=== PATIENT | male | born 1995 | race Caucasian/White ===

== ENCOUNTER 2020-01-25 08:17 | Outpatient (REF) | payer BC, SELFPAY ==
--- NOTE | 2020-01-25 08:44 | XR_ITS ---
EXAMINATION: XR LUMBOSACRAL SPINE CLINICAL INFORMATION: Lumbar go with sciatica. COMPARISON: None TECHNIQUE: Three views of the lumbosacral spine. FINDINGS: The vertebral bodies and posterior elements are normal. The disc spaces are preserved and the vertebral alignment is normal. The paraspinal soft tissues are normal. XR/XR lumbar spine 2-3V IMPRESSION: No evidence of acute fracture or malalignment.
== END 2020-01-25 08:18 | disposition home or self-care (01) ==
LOC: HO.HMGCX 08:17
PROVIDERS: PCP Nurse Practitioner Family; Visit Provider Nurse Practitioner Family
DX: M54.40 Lumbago with sciatica, unspecified side (principal)
CPT/HCPCS: 72100

== ENCOUNTER 2024-08-03 12:21 | Outpatient (AMB) | payer BC, SELFPAY ==
--- OUTSIDE RECORDS SUMMARY | 2024-08-03 12:24 | XMS_ITS | Data Portability ---
Author Organization ID - [facility], [facility] Address [address] [place] [address] Assessment Encounter Date Assessment Date Assessment LastModified by Organization Details LastModified Time 03/16/2013 03/16/2013 Healthy 17 year old. Nl dev migraines- gets KERNS about 10 times a month. Takes ibuprofen and imitrex with some help. Will help KERNS with sleep.- discussed trial Vitamin B 2- 200mg BID Increased BMI- labs off- repeat in 2 month- disc that labs are concerning. will need repeat in 2 months. [email or web address] Not available 03/16/2013 17:14:58 05/15/2013 05/15/2013 obesity- disc diet and exersize at length. great job on weight control. imp of life changes. keep it up jmarcusunis Not available 05/15/2013 17:24:45 06/16/2013 06/16/2013 ST- Symptomatic care. Call if worse/ not improving or with any concerns jyunis Not available 06/16/2013 09:32:05 07/05/2013 07/05/2013 ROM - abx as directed, sx care, f/u prn kcamera Not available 07/05/2013 14:04:30 06/12/2014 06/12/2014 Healthy 18 year old. Nl growth and dev improved BMI- doing well- disc healthy lifestyle Migraines- not as often as before- still has not tried riboflavin jyunis Not available 06/12/2014 14:42:00 Plan of Treatment Reminders Order Date Submit Date Provider Last Modified By Organization Details Last Modified Time Details Appointments None recorded. Lab culture, throat 2013 014 mata [facility], [address] [place] [address], [phone], 4 09:32:05 rapid strep A 2013 014 mata [facility], [address] [place] [address], [phone], 4 09:32:05 Referral internal medicine referral 2014 015 sbotta Not available 5 15:36:42 Procedures None recorded. Surgeries None recorded. Imaging None recorded. Medication Orders amoxicillin 875 mg tablet 2013 014 brandon [id number], [address] [facility], [place], [address], 5 14:13:39 Patient TargetsNo targets recorded. Patient Instructions Encounter Date Encounter Id Patient Instructions Last Modified By Organization Details Last Modified Time 03/16/2013 [id number] pediatric sympto m checklist* mata Not available 03/16/2013 17:14:58 06/12/2014 [id number] immunization: wh at you need to know mata Not available 06/12/2014 14:41:59 patient health questionnaire depression assessment* brandon Not available 06/12/2014 14:49:29 Well Visit, Ages 18 to 65: Care Instructions IESHA Not available 09/11/2014 02:12:49 Reason for Referral Internal Medicine Referral f or Adult health examination Referring Physician: Bandar Singletary, Pediatric Medicine, Encounter Date: 06/12/2014 Results Created Date Observation Date Name Description Value Unit Range Abnormal Flag Note LastModifiedBy Organization Detail LastModifiedTime 06/17/19 14 06/16/2013 rapid strep A Rapid Strep negati ve Not Available [facility] [address] [place] [address], [phone], 06/16/2013 09:02:27 06/17/19 14 06/16/2013 cultu re, throa t Result 24 HR negati ve Not Available [facility] [address] [place] [address], [phone], 06/16/2013 09:02:27 06/17/19 14 06/16/2013 cultu re, throa t Result 48 HR negati ve Not Available [facility] [address] [place], [address], 06/16/2013 09:02:27 03/16/19 14 03/16/2013 samiria milena sympt om check list* Result negati ve Not Available [facility] [address] [place], [address], 03/16/2013 15:01:46 03/14/19 14 03/14/2013 CBC w/dif f WBC 6.9 K/mm3 (4.0-1 1.0) Not Available [facility] (Centralized Electronic Ordering - All Locations) Patient Can Go To The Location Of Their Choice, 03/14/2013 10:26:27 03/14/19 14 03/14/2013 CBC w/dif f RBC 5.60 M/mm3 (4.70- 6.10) Not Available [facility] (Centralized Electronic Ordering - All Locations) Patient Can Go To The Location Of Their Choice, 03/14/2013 10:26:27 03/14/19 14 03/14/2013 CBC w/dif f HGB 16.9 gm/dL (14.0- 18.0) Not Available [facility] (Centralized Electronic Ordering - All Locations) Patient Can Go To The Location Of Their Choice, 03/14/2013 10:26:27 03/14/19 14 03/14/2013 CBC w/dif f HCT 50.4 % (42.0- 52.0) Not Available [facility] (Centralized Electronic Ordering - All Locations) Patient Can Go To The Location Of Their Choice, 03/14/2013 10:26:27 03/14/19 14 03/14/2013 CBC w/dif f MCV 90.0 fL (80.0- 94.0) Not Available [facility] (Centralized Electronic Ordering - All Locations) Patient Can Go To The Location Of Their Choice, 03/14/2013 10:26:27 03/14/19 14 03/14/2013 CBC w/dif f MCH 30.2 pg (27.0- 34.0) Not Available [facility] (Centralized Electronic Ordering - All Locations) Patient Can Go To The Location Of Their Choice, 03/14/2013 10:26:03/14/1903/14/2013 CBC w/dif f MCHC 33.5 % (33.0- 37.0) Not Available [facility] (Centralized Electronic Ordering - All Locations) Patient Can Go To The Location Of Their Choice, 03/14/2013 10:26:03/14/1903/14/2013 CBC w/dif f plt 266 K/mm3 (150-4 60) Not Available [facility] (Centralized Electronic Ordering - All Locations) Patient Can Go To The Location Of Their Choice, 03/14/2013 10:26:03/14/19 14 03/14/2013 CBC w/dif f RDW-SD 42.2 fL (<47.0 ) Not Available [facility] (Centralized Electronic Ordering - All Locations) Patient Can Go To The Location Of Their Choice, 03/14/2013 10:26:03/14/19 14 03/14/2013 CBC w/dif f MPV 11.7 fL (9.4-1 2.4) Not Available [facility] (Centralized Electronic Ordering - All Locations) Patient Can Go To The Location Of Their Choice, 03/14/2013 10:26:03/14/19 14 03/14/2013 CBC w/dif f automated NRBC 0.0 #/100 _WBC' s Not Available [facility] (Centralized Electronic Ordering - All Locations) Patient Can Go To The Location Of Their Choice, 03/14/2013 10:26:03/14/19 14 03/14/2013 CBC w/dif f abs. NRBC 0.0 K/mm3 Not Available [facility] (Centralized Electronic Ordering - All Locations) Patient Can Go To The Location Of Their Choice, 03/14/2013 10:26:03/14/19 14 03/14/2013 CBC w/dif f neut # 4.4 K/mm3 (1.3-7 .0) Not Available [facility] (Centralized Electronic Ordering - All Locations) Patient Can Go To The Location Of Their Choice, 03/14/2013 10:26:03/14/1903/14/2013 CBC w/dif f lymph # 1.7 K/mm3 (0.8-3 .1) Not Available [facility] (Centralized Electronic Ordering - All Locations) Patient Can Go To The Location Of Their Choice, 03/14/2013 10:26:03/14/1903/14/2013 CBC w/dif f mono# 0.6 K/mm3 (0.4-1 .3) Not Available [facility] (Centralized Electronic Ordering - All Locations) Patient Can Go To The Location Of Their Choice, 03/14/2013 10:26:03/14/19 14 03/14/2013 CBC w/dif f eo # 0.1 K/mm3 (0.0-0 .4) Not Available [facility] (Centralized Electronic Ordering - All Locations) Patient Can Go To The Location Of Their Choice, 03/14/2013 10:26:03/14/1903/14/2013 CBC w/dif f baso # 0.1 K/mm3 (0.0-0 .1) Not Available [facility] (Centralized Electronic Ordering - All Locations) Patient Can Go To The Location Of Their Choice, 03/14/2013 10:26:03/14/1903/14/2013 CBC w/dif f abs. imm gran 0.0 K/mm3 Not Available [facility] (Centralized Electronic Ordering - All Locations) Patient Can Go To The Location Of Their Choice, 03/14/2013 10:26:03/14/1903/14/2013 CBC w/dif f neut 63.7 % (44-76 ) Not Available [facility] (Centralized Electronic Ordering - All Locations) Patient Can Go To The Location Of Their Choice, 03/14/2013 10:26:03/14/1903/14/2013 CBC w/dif f lymph 24.8 % (15-43 ) Not Available [facility] (Centralized Electronic Ordering - All Locations) Patient Can Go To The Location Of Their Choice, 03/14/2013 10:26:27 03/14/19 14 03/14/2013 CBC w/dif f monocyte 8.5 % (4.5-1 0.5) Not Available [facility] (Centralized Electronic Ordering - All Locations) Patient Can Go To The Location Of Their Choice, 03/14/2013 10:26:27 03/14/1903/14/2013 CBC w/dif f eo 1.3 % (0-6) Not Available [facility] (Centralized Electronic Ordering - All Locations) Patient Can Go To The Location Of Their Choice, 03/14/2013 10:26:27 03/14/19 14 03/14/2013 CBC w/dif f baso 1.3 % (0-2) Not Available [facility] (Centralized Electronic Ordering - All Locations) Patient Can Go To The Location Of Their Choice, 03/14/2013 10:26:27 03/14/19 14 03/14/2013 CBC w/dif f imm gran 0.4 % (0.0-0 .3) high Not Available [facility] (Centralized Electronic Ordering - All Locations) Patient Can Go To The Location Of Their Choice, 03/14/2013 10:26:27 03/14/19 14 03/14/2013 gluco se glucose 107 mg/dL (70-99 ) high Not Available [facility] (Centralized Electronic Ordering - All Locations) Patient Can Go To The Location Of Their Choice, 03/14/2013 14:13:49 03/14/19 14 03/14/2013 lipid panel cholesterol, total 203 mg/dL (0-170 ) high Not Available [facility] (Centralized Electronic Ordering - All Locations) Patient Can Go To The Location Of Their Choice, 03/14/2013 14:13:52 03/14/19 14 03/14/2013 lipid panel triglyceride 351 mg/dL (0-100 ) high Not Available [facility] (Centralized Electronic Ordering - All Locations) Patient Can Go To The Location Of Their Choice, 03/14/2013 14:13:52 03/14/1903/14/2013 lipid panel HDL chol 35 mg/dL (>40) low Not Available [facility] (Centralized Electronic Ordering - All Locations) Patient Can Go To The Location Of Their Choice, 03/14/2013 14:13:52 03/14/19 14 03/14/2013 lipid panel LDL cholesterol, calculated 98 mg/dL (0-109 ) Not Available [facility] (Centralized Electronic Ordering - All Locations) Patient Can Go To The Location Of Their Choice, 03/14/2013 14:13:52 03/14/19 14 03/14/2013 lipid panel non HDL cholesterol (calc) 168 mg/dL (0-139 ) high Not Available [facility] (Centralized Electronic Ordering - All Locations) Patient Can Go To The Location Of Their Choice, [id number] 03/14/2013 14:13:52 Result Notes None recorded. Problems Name Problem SNOMED Code Status Onset Date Resolution Date Notes Provider Name and Address Organization Details Recorded Time Obesity 584086943 Active Bandar Singletary MD [address] [place] [address], , [facility] 4 17:24:45 Acute pharyngiti s 012544084 Active Bandar Singletary MD [address] [place] [address], , [facility] 4 09:32:05 Otitis media 87952552 Active Hannah Suazo MD [address] [place] [address], , [facility] 4 14:04:30 Headache 57189239 Active 2007 Not Available [facility] 3 03:01:22 Contusion 406182872 Completed 200601/17/2011 Not Available [facility] 3 03:01:22 Pain in throat 401894958 Completed 01/17/2011 Not Available [facility] 3 03:01:22 Migraine with aura 2387058 Active Donovan Ruiz [facility] 5 17:17:12 Migraine with aura 3463667 Completed 01/17/2011 Not Available [facility] 3 03:01:22 Epistaxis Completed 01/17/2011 Not Available [facility] 3 03:01:22 Low back pain 381944223 Completed 200701/17/2011 Not Available [facility] 3 03:01:22 Open wound 022799464 Completed 200801/17/2011 Not Available [facility] 3 03:01:22 Pain in limb 98290541 Completed 02/15/2012 Not Available [facility] 3 03:01:22 Streptococ ernesto sore throat 49590225 Completed 01/17/2011 Not Available [facility] 3 03:01:22 Childhood emotional disorder 912627543 Completed 200701/17/2011 Not Available [facility] 3 03:01:22 Notes:Labs 03/21- inc chol an d glu Problem Notes None recorded. Medical Equipment None Reported. Allergies No known drug allergies Medications Name Sig Start Date Stop Date Status Note LastModified by Organization Details LastModified Time ibuprofen 800 mg tablet TAKE 1 TABLET BY MOUTH AT FIRST SIGN OF HEADACHE. MAY REPEAT IN 6 HOURS ONCE active Not Available Not Available No t Available sumatriptan 25 mg tablet TAKE 1 TABLET BY MOUTH WITH FLUIDS EARLY POSSIBLE AT ONSET OF MIGRAINE MAY REPEAT AFTER 2HRS. active Not Available Not Available No t Available penicillin V potassium 500 mg tablet Take 1 tablet twice a day by oral route for 10 days. 12/05 completed Not Available Not Available Not Available amoxicillin 875 mg tablet Take 1 tablet every 12 hours by oral route for 10 days. 07/15 completed Not Available Not Available Not Available sumatriptan active Not Available Not A vailable Not Available Vitals Date Recorded Body height Body mass index (BMI) Provider Name and Address Organization Details Last Updated DateTime 03/16/2013 172.72 cm 31.6 kg/m2 Bandar Singletary MD [address] [place] [address], [phone], [facility] 03/16/2013 15:32:50 Date Recorded Body weight Systolic blood pressure Diastolic blood pressure Provider Name and Address Organization Details Last Updated DateTime 03/16/2013 51613.2129 6 g 118 mm[Hg] 70 mm[Hg] Renetta Guerrero M.A. [facility] 03/16/2013 15:11:21 Date Recorded Body height Body weight Body mass index (BMI) Provider Name and Address Organization Details Last Updated DateTime 05/15/2013 172.72 cm 93000.53231 g 31.3 kg/m2 Renetta Guerrero M.A. [facility] 05/15/2013 16:28:33 Date Recorded Body height Body mass index (BMI) Body weight Systolic blood pressure Diastolic blood pressure Provider Name and Address Organization Details Last Updated DateTime 06/12/2014 172.72 cm 30.4 kg/m2 08564.47 4 g 120 mm[Hg] 76 mm[Hg] Renetta Guerrero M.A. [facility] 5 14:13:39 Social History Question Answer Notes LastModified by Organizat ion Details LastModified Time Tobacco Smoking Status Never Smoker Kristen Augustine null, [facility] 07/30/2011 12:59:38 Home Situation Father Sees Mom Daily Information not available 01/10/2011 Siblings 2 Sibs Palak 04/14/93; Bryce 09/10/98 Information not available 01/10/2011 Parent's Name Etelvina [email or web address] Information not available 01/10/2011 Parent's Name Philip [email or web address] Information not available 01/10/2011 Are You Passively Exposed To Smoke? No slevin Information not available 03/16/2013 Sex: Unknown Functional Status None recorded. Mental Status None recorded. Family History Relationship Description Onset Age of this Age Resolved Age Notes LastModified by Organization Details LastModified Time Father Diabetes mellitus previo usly record ed as Diabet es slevin Not available 06/12/2014 14:45:31 Father Obese previo usly record ed as Obesit y slevin Not available 06/12/2014 14:45:31 Father Problem HTN slevin Not available 14:45:31 Father Hypercholest erolemia previo usly record ed as Elevat ed Choles terol slevin Not available 06/12/2014 14:45:31 Mother Obese previo usly record ed as Obesit y slevin Not available 06/12/2014 14:45:31 Mother Autoimmune disease previo usly record ed as Thyroi d or other Autoim mune Diseas es slevin Not available 06/12/2014 14:45:31 Mother Mental disorder anxiet y (previ ously record ed as Psychi atric Disord ers) slevin Not available 06/12/2014 14:45:31 Paternal Grandfather Alcoholism slevin Not available 09/2014 14:45:31 Maternal Grandfather Asthma slevin Not available 2014 14:45:31 Maternal Grandfather Allergy slevin Not available 2014 14:45:31 Maternal Grandfather Heart disease slevin Not available 2014 14:45:31 Maternal Grandfather Obese slevin Not available 2014 14:45:31 Paternal Grandmother Obese slevin Not available 2014 14:45:31 Brother Mental disorder slevin Not available 2014 14:45:31 Brother Allergy amox slevin Not available 0 06/12/2014 14:45:31 Sister Mental disorder slevin Not available 2014 14:45:31 Notes:updated 06/12/14 Medical History Condition Response CARDIAC PROBLEMS N ALLERGIC AND IMMUNOLOGIC PROBLEMS N DEVELOPMENTAL/ BEHAVIORAL PROBLEMS N HOSPITALIZATIONS N ACCIDENTS INJURIES N ENDOCRINE PROBLEMS/DIABETES N GI PROBLEMS/CONSTIPATION N ORTHOPEDIC PROBLEMS N CHICKEN POX / VARICELLA HISTORY or POSIT JET TITER N MUSCLE/ JOINT/ BONE PROBLEMS N RHEUMATOLOGIC PROBLEMS N DERMATOLOGIC PROBLEMS/ECZEMA N ENT PROBLEMS/OTITIS MEDIA/ CHRONIC N FACULTY ADMINISTRATOR PROBLEMS N HEMATOLOGIC /ONCOLOGIC PROBLEMS N RENAL PROBLEMS N OTHER N NEUROLOGIC/ SEIZURES OR CONVULSIONS N ADHD N HEADACHES/MIGRAINES/DIZZINESS N CONGENITAL AND GENETIC PROBLEMS N INFECTIOUS DISEASE PROBLEMS N PUMONARY PROBLEMS/ ASTHMA N PSYCH PROBLEMS N Immunizations Vaccine Type Date Status Note Provider Nam e and Address Organization Details Recorded Time MMR 7 completed Not Available [facility] 01/10/2011 03:18:24 Hep B, unspecified formulation 6 completed Not Available [facility] 01/10/2011 03:19:20 Hep B, unspecified formulation 6 completed Not Available [facility] 01/10/2011 03:18:24 varicella 8 completed Not Available [facility] 01/10/2011 03:18:24 Hep B, unspecified formulation 7 completed Not Available [facility] 01/10/2011 03:19:20 Influenza, split virus, trivalent, preservative 1 completed Not Available [facility] 03/25/2019 02:35:19 Influenza, split virus, trivalent, preservative 2 completed Not Available [facility] 03/25/2019 02:35:23 meningococcal MCV4P 2 completed Not Available [facility] 03/25/2019 02:33:31 HPV, quadrivalent 2 completed Not Available [facility] 03/25/2019 02:34:02 HPV, quadrivalent 3 completed Not Available [facility] 03/25/2019 02:34:04 DTaP, unspecified formulation 7 completed Not Available [facility] 01/10/2011 03:19:20 DTaP, unspecified formulation 1 completed Not Available [facility] 01/10/2011 03:19:20 DTaP, unspecified formulation 8 completed Not Available [facility] 01/10/2011 03:19:20 DTaP, unspecified formulation 6 completed Not Available [facility] 01/10/2011 03:19:20 DTaP, unspecified formulation 7 completed Not Available [facility] 01/10/2011 03:19:20 OPV 7 completed Not Available [facility] 01/10/2011 03:19:20 IPV 1 completed Not Available [facility] 01/10/2011 03:19:20 OPV 6 completed Not Available [facility] 01/10/2011 03:19:20 OPV 7 completed Not Available [facility] 01/10/2011 03:19:20 Hib, unspecified formulation 6 completed Not Available [facility] 01/10/2011 03:19:20 Hib, unspecified formulation 7 completed Not Available [facility] 01/10/2011 03:19:20 Hib, unspecified formulation 7 completed Not Available [facility] 01/10/2011 03:19:20 MMR 0 completed Not Available [facility] 01/10/2011 03:19:20 Hib, unspecified formulation 7 completed Not Available [facility] 01/10/2011 03:19:20 Novel [id number]-[id number] 0 completed Not Available [facility] 03/25/2019 02:34:47 HPV, quadrivalent 5 completed Not Available [facility] 03/25/2019 02:36:01 Tdap 9 completed Not Available [facility] 01/10/2011 03:17:07 varicella 08/11/200 9 completed Not Available [facility] 01/10/2011 03:18:24 Influenza, split virus, trivalent, preservative 0 completed Not Available [facility] 03/25/2019 02:35:06 meningococcal MCV4P 0 completed Not Available [facility] 03/25/2019 02:33:24 Past Encounters Encounter ID Performer Location Encounter Start Date Encounter Closed Date Diagnosis/Indication Diagnosis SNOMED-CT Code Diagnosis ICD10 Code Diagnosis Note [id number] Eder Perla MD [facility] [address] [place] [id number] 4 02/08/2007 16:00:06 02/08/2007 16:47:30 [id number] Pollo Wooten MD [facility] [address] [place] [address] 4 03/07/2007 16:58:16 03/07/2007 17:15:06 [id number] Pollo Wooten MD [facility] [address] [place] [phone] 4 05/11/2007 16:13:10 05/11/2007 17:23:32 [id number] Bandar Singletary MD [facility] [address] [place] [phone] 4 07/26/2007 14:00:30 11/15/2008 01:23:50 [id number] Pollo Wooten MD [facility] [address] [place] [address] 4 07/06/2008 14:57:35 07/06/2008 15:28:01 [id number] Bandar Singletary MD [facility] [address] [place] [address] 4 10/16/2008 17:10:22 11/15/2008 01:23:50 [id number] Bandar Singletary MD [facility] [address] [place] [id number] 4 06/11/2009 12:46:03 06/11/2009 14:06:01 [id number] Pollo Wooten MD [facility] [address] [place] [phone] 4 07/09/2009 13:24:09 07/09/2009 14:39:26 [id number] Bandar Sinlgetary MD [facility] [address] [place] [address] 01/03/2010 13:59:15 01/03/2010 15:30:17 [id number] Pollo Wooten MD [facility] [address] [place] [address] 11/25/2010 09:31:01 11/25/2010 09:53:10 [id number] Bandar Singletary MD [facility] [address] [place] [address] 12/08/2010 16:30:12 12/08/2010 16:43:40 [id number] Bandar Singletary MD [facility] [address] [place] [id number] 4 01/17/2011 08:05:13 01/17/2011 08:59:56 [id number] Juanis Mario MD [facility] [address] [place] [phone] 4 07/30/2011 12:52:54 07/30/2011 13:38:53 [id number] Bandar Singletary MD [facility] [address] [place] [address] 08/31/2011 15:14:26 08/31/2011 15:43:19 [id number] Bandar Singletary MD [facility] [address] [place] [phone] 4 02/15/2012 14:58:17 02/15/2012 16:47:39 [id number] Bandar Singletary MD [facility] [address] [place] [address] 06/09/2012 15:10:16 06/09/2012 15:27:57 [id number] Bandar Singletary MD [facility] [address] [place] [id number] 4 03/16/2013 14:57:03 03/16/2013 17:15:28 Well child [id number] Bandar Singletary MD [facility] [address] [place] [address] 05/15/2013 16:24:30 05/15/2013 17:25:15 Obesity 742144691 [id number] Bandar Singletary MD [facility] [address] [place] [address] 06/16/2013 09:00:31 06/16/2013 09:32:42 Acute pharyngitis 060164817 [id number] Hannah Suazo MD [facility] [address] [place] [address] 07/05/2013 12:56:35 07/05/2013 14:21:25 Otitis media 93965394 [id number] Bandar Singletary MD [facility] [address] [place] [place] [address] 06/12/2014 13:57:12 06/12/2014 15:20:58 Adult health examination 866412748 Health Concerns Section Related Observation LastModified by Organization Detai ls LastModified Time None Recorded Concern Status LastModified by Organization Details LastModified Time None Recorded Advance Directives Directive None Recorded Payers Encounter Date Sequence Insurance Name Policy Number Policy Patricio Covered Member ID Patricio Member ID Guarantor Name 03/16/2013 1 [facility] [employer] [facility] (MEDICAID HMO) [id number] Karan Kopyscinski [id number] [facility] 03/16/2013 1 [place] Karan Kopyscinski [id number] [facility] 05/15/2013 1 [facility] PLAN (MEDICAID HMO) [id number] Karan Kopyscinski [id number] [facility] 05/15/2013 1 [place] Karan Kopyscinski [id number] [facility] 06/16/2013 1 [facility] [employer] [facility] [employer] (MEDICAID HMO) [id number] Karan Kopyscinski [id number] [facility] 06/16/2013 1 [place] Karan Kopyscinski [id number] [facility] 07/05/2013 1 [facility] PLAN (MEDICAID HMO) [id number] Karan Kopyscinski [id number] [facility] 07/05/2013 1 [place] Karan Kopyscinski [id number] [facility] 06/12/2014 1 MED[place]ID-[place]: [facility] Karan Doverrafat [id number] Etelvina Velazco Notes Date Note Type Note Provider Name and Address Organization Details Recorded Time 03/16/2013 text/html getting over a recent illness Bandar Singletary MD [address] [place] [address], [phone], [facility] 03/16/2013 17:14:59
--- NOTE | 2024-08-03 12:33 | A.OFFPC_ITS ---
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 Accompanied by: Self / Same As Patient Allergies No Known Allergies Allergy (Verified 08/03/24 12:53) Medication List - Last Reconciled 08/03/24 by SNOW Juarez No Known Home Meds Tobacco use date assessed: 08/03/24 Dental Screening Dental Screen Date: 08/03/24 Did you have a dental visit in the last 12 months?: No Did you have a dental problem in the last 6 months where you did not have access to dental care?: No Was dental information given to patient?: Patient has dentist [facility] Medical History Lumbar nerve root compression Migraines Lumbago of lumbar region with sciatica Surgical History S/P lumbar microdiscectomy No pertinent past surgical history Family History Father Diabetes mellitus Mother No problems noted. Brother No problems noted. Brother No problems noted. Brother No problems noted. Sister No problems noted. Paternal Uncle Cancer Social History Housing: House Alcohol intake: current Alcohol intake frequency: does not drink Patient Tobacco Use Status: Never used Tobacco service: No Current occupational status: employed Cognitive needs: No Hearing needs: No Vision needs: Yes (rx glasses) Questionnaire PHQ-9 Over the last 2 weeks, how often have you been bothered by any of the following problems? 1. Little interest or pleasure in doing things: not at all 2. Feeling down, depressed, or hopeless: not at all 3. Trouble falling or staying asleep, or sleeping too much: not at all 4. Feeling tired or having little energy: not at all 5. Poor appetite or overeating: not at all 6. Feeling bad about yourself - or that you are a failure or have let yourself or your family down: not at all 7. Trouble concentrating on things, such as reading the newspaper or watching television: not at all 8. Moving or speaking so slowly that other people could have noticed. Or the opposite - being so fidgety or restless that you have been moving around a lot m ore than usual: not at all 9. Thoughts that you would be better off or of hurting yourself in some way: not at all Total score: 0 Depression Screening Interpretation: Negative Depression Screening Done: Yes Source: Developed by Drs. Oliver Dalton, Kiara Singh, Zain Marley and colleagues, with an educational edil from [employer]. Thrive Questionnaire Date Thrive assessed: 08/03/24 I am a: Patient What is your living situation today?: I have a steady place to live Within the past 12 months, did the food you bought not last and you didn't have the money to get more?: Never true Within the past 12 months, did you worry whether your food would run out before you got money to buy more?: Never true Do you have trouble paying for medicines?: No Do you have trouble getting transportation to medical appointments?: No Do you have trouble paying your heating and electricity bill?: No Do you have trouble taking care of your child, family member or friend?: No Do you have trouble with day-to-day activities such as bathing, preparing meals, shopping, managing finances, etc.?: No Are you currently unemployed and looking for a job?: No Are you interested in more education?: No Please select the resources that you would like help with: None Currently or been in a relationship where the following occur: No concerns reported THRIVE Score: 0 AUDIT C Alcohol Use Questionnaire (AUDIT-C) 1. How often do you have a drink containing alcohol?: Never 3. How often do you have six or more drinks on one occasion?: Never Total Score: 0 JD-7 AMB Questionnaire JD-7 Date JD - 7 assessed: 08/03/24 Feeling nervous, anxious, or on edge: 0 = Not at all Not being able to stop or control worryin = Not at all Worrying too much about different things: 0 = Not at all Trouble relaxin = Not at all Being so restless that it is hard to sit still: 0 = Not at all Becoming easily annoyed or irritable: 0 = Not at all Feeling afraid as if something awful might happen: 0 = Not at all Total JD-7 score (0-4 normal; 5-9 mild; 10-14 moderate; 15-21 severe): 0 Source: Developed by Drs. Oliver Dalton, Kiara Singh, Zain Marley and colleagues, with an educational edil from [employer]. JD-7 Assessment Billing JD-7 Assessment Tool: JD-7 Assessment 04016 Physical exam (Primary Care) Vital Signs: Last Vital Signs Temp 98.3 F 08/03/24 12:34 Pulse 102 H 08/03/24 12:34 Resp 14 08/03/24 12:34 BP 140/82 H 08/03/24 13:08 Pulse Ox 99 08/03/24 12:34 BMI result Body Mass Index 35.0 Tobacco/Smoking Status: Tobacco use Status Tobacco use date assessed 08/03/24 08/03/24 12:39 Patient Tobacco Use Status Never used Tobacco 08/03/24 12:39 PHQ-9: PHQ-9 Score PHQ-9: Total score 0 08/03/24 13:08 Depression Screening Interpretation: Negative Thrive Assessment: Date of Thrive Assessment Date Thrive assessed 08/03/24 08/03/24 12:39 Currently or been in a relationship where the following occur: No concerns reported Office Procedures EKG 46494-[id number], Complete Coding Level of Care Code New Pt Prev Care 18-39yr(37696 Diagnoses Physical exam Z00.00 HTN (hypertension) I10 Tick bite W57.XXXA Chest discomfort R07.89 CPT Codes EKG - CPT: 52773-Tzrewjfdtqmsoehnn, Complete ([id number]) Additional Codes JD-7 Assessment Billing - JD-7 Assessment Tool: JD-7 Assessment 34758 ([id number]) Assessment & Plan Assessment & Plan (1) Physical exam: Code(s): Z00.00 - Encounter for general adult medical examination without abnormal findings Category: Medical (2) HTN (hypertension): Code(s): I10 - Essential (primary) hypertension Category: Medical (3) Tick bite: Code(s): W57.XXXA - Bitten or stung by nonvenomous insect and other nonvenomous arthropods, initial encounter Category: Medical (4) Chest discomfort: Code(s): R07.89 - Other chest pain Category: Medical Plan . Orders: Orders Complete Blood Count Auto Diff Today I10 - Essential (primary) hypertension Comprehensive [place]. Panel Fast Today I10 - Essential (primary) hypertension TSH reflex Free T4 Today I10 - Essential (primary) hypertension Lipid Panel Today I10 - Essential (primary) hypertension Tick-borne Disease Molecular Today W57.XXXA - Bitten or stung by nonvenomous insect and other nonvenomous arthropods, initial encounter AMB EKG-In Office Today R07.89 - Other chest pain UA CC w/rflx Micro + Cult Today I10 - Essential (primary) hypertension Lyme IgG/IgM w/reflex to WB Today W57.XXXA - Bitten or stung by nonvenomous insect and other nonvenomous arthropods, initial encounter
[2024-08-03 12:34] VITALS: BP 152/90; PULSE 102; RESP 14; TEMP 36.8; O2SAT 99; BMI 35.0
[2024-08-03 13:08] VITALS: BP 140/82
== END 2024-08-03 13:35 | disposition home or self-care (01) ==
LOC: HO.HMCC 12:22
PROVIDERS: PCP Nurse Practitioner Family; Visit Provider Nurse Practitioner Family
DX: Z00.00 Encounter for general adult medical examination without abnormal findings (principal); I10 Essential (primary) hypertension; W57.XXXA Bitten or stung by nonvenomous insect and other nonvenomous arthropods, initial encounter; R07.89 Other chest pain

== ENCOUNTER → 2024-08-03 12:21 | Outpatient (BNVA) | payer BC, SELFPAY | PROVIDERS: PCP Nurse Practitioner Family; Visit Provider Nurse Practitioner Family | DX: Z00.00 Encounter for general adult medical examination without abnormal findings (principal); I10 Essential (primary) hypertension; R07.89 Other chest pain; T14.8XXA Other injury of unspecified body region, initial encounter; W57.XXXA Bitten or stung by nonvenomous insect and other nonvenomous arthropods, initial encounter; Y93.9 Activity, unspecified; Y92.9 Unspecified place or not applicable; Y99.9 Unspecified external cause status | CPT/HCPCS: 93005; 96127 ==

== ENCOUNTER 2025-01-31 11:22 | Outpatient (AMB) | payer BC, SELFPAY ==
--- NOTE | 2025-01-31 11:28 | MHC.PC.OV ---
Vital Signs 01/31/25 11:30 Height 5 ft 8 in Weight 222 lb BMI 33.8 BP 138/82 Blood Pressure Location Lt brachial Position Sitting Respiration 16 Pulse 104 H Pulse Source Pulse Oximeter Pulse Oximetry (%) 98 Oxygen Delivery Method Room Air Intake Visit Reasons: 6 months f/up Photo Producer Required: No Accompanied by: Self / Same As Patient Allergies No Known Allergies Allergy (Verified 01/31/25 11:30) Medication List - Last Reconciled 01/31/25 by SNOW Juarez losartan 25 mg PO DAILY 90 days Tobacco use date assessed: 01/31/25 Dental Screening Dental Screen Date: 01/31/25 Did you have a dental visit in the last 12 months?: No Did you have a dental problem in the last 6 months where you did not have access to dental care?: No Was dental information given to patient?: Patient has dentist HPI 6 months f/up HPI Details Chief Complaint The patient presents for a follow-up visit for hypertension. History of Present Illness The patient is a 29 year old individual presenting for a follow-up visit for hypertension. The patient also has a history of migraines since the age of 8 and has previously tried magnesium and riboflavin (vitamin B2) as preventative measures without success. The patient has seen a neurologist in the past for this condition. HTN: upper limits of normal today. 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 Social History Health Maintenance - The patient was advised to stay hydrated. - Home blood pressure monitoring was reinforced. Review of Systems - General: Denies dizziness. - Eyes: Denies blurred vision. - Cardiovascular: Denies chest pain. - Respiratory: Denies shortness of breath. - Neurological: Reports frequent migraines, which are described as being without auras. Denies current phonophobia or photophobia. Physical Exam General: Cooperative, healthy appearing, comfortable, no acute distress and well developed Orientation: Patient oriented x3 Limitations: No limitations Head: Normal to inspection Ears: Hearing grossly normal bilaterally Nose: Normal external nose present Face and sinus: Normal facial exam Eyes: Appearance normal, both eyes and all related structures Neck: Normal visual inspection and Yes full ROM Respiratory: Normal respiratory effort and able to speak in complete sentences. Clear to auscultation bilaterally Cardiovascular: Regular rate and rhythm. Normal S1 and S2 GI: Normal to inspection. Soft to palpation and nontender Skin: No rashes or lesions noted Neuro: Patient oriented x3, cn2-12 intact Extremities: Normal to inspection Results Plan 1. Hypertension The patient's blood pressure was noted to be at the upper cusp of normal. A low-dose losartan will be initiated. The patient will obtain fasting labs in the near future. The patient will continue to monitor blood pressure at home and report any values above 138/88 mmHg sustained. 2. Migraines The patient has a history of migraines since age 8 and has previously failed preventative therapy with magnesium and riboflavin. For acute attacks, the patient will be prescribed Ubrelvy 50 mg PRN, not to exceed one dose per day. A referral to a different neurologist will be considered if the Ubrelvy is not helpful. The patient was instructed to stay hydrated and to contact the office if the migraines persist or worsen in intensity. Discussion Notes I discussed with the patient the plan to initiate low-dose losartan for hypertension, which is currently on the upper cusp of normal. I instructed the patient to obtain fasting labs and to monitor blood pressure at home, notifying me if values exceed 138/88 mmHg sustained. For the patient's migraines, I explained the use of Ubrelvy 50 mg for acute attacks and stressed that it should not be used on a daily basis. We discussed a potential referral to a new neurologist if this treatment is ineffective. I reinforced the importance of staying hydrated and monitoring blood pressure, even with the use of Ubrelvy. The patient knows to follow up if migraines persist or worsen. Patient Instructions - Start taking a low dose of losartan for your blood pressure. - You will need to get fasting lab work done soon. - Continue to check your blood pressure at home. Please write down the values and send them to us if they go above 138/88. - You will receive a prescription for Ubrelvy 50 mg to be taken as needed for migraine attacks, but no more than once a day. - Do not take Ubrelvy on a daily basis. - It is important to stay hydrated by drinking plenty of fluids. - Contact the office if your migraines continue or get worse. [facility] Medical History (Updated 01/31/25 @ 12:20 by Adarsh Reynolds, RADIO SURVEY WORKER-[employer]) Lumbar nerve root compression Migraines Lumbago of lumbar region with sciatica Surgical History S/P lumbar microdiscectomy No pertinent past surgical history Family History Father Diabetes mellitus Mother No problems noted. Brother No problems noted. Brother No problems noted. Brother No problems noted. Sister No problems noted. Paternal Uncle Cancer Social History Housing: House Alcohol intake: current Alcohol intake frequency: does not drink Patient Tobacco Use Status: Never used Tobacco service: No Current occupational status: employed Cognitive needs: No Hearing needs: No Vision needs: Yes (rx glasses) Questionnaire PHQ-9 Over the last 2 weeks, how often have you been bothered by any of the following problems? 1. Little interest or pleasure in doing things: not at all 2. Feeling down, depressed, or hopeless: not at all 3. Trouble falling or staying asleep, or sleeping too much: not at all 4. Feeling tired or having little energy: not at all 5. Poor appetite or overeating: not at all 6. Feeling bad about yourself - or that you are a failure or have let yourself or your family down: not at all 7. Trouble concentrating on things, such as reading the newspaper or watching television: not at all 8. Moving or speaking so slowly that other people could have noticed. Or the opposite - being so fidgety or restless that you have been moving around a lot more than usual: not at all 9. Thoughts that you would be better off or of hurting yourself in some way: not at all Total score: 0 Depression Screening Interpretation: Negative Depression Screening Done: Yes 05542 - PHQ-9 Billing: Yes Source: Developed by Drs. Oliver Dalton, Kiara Singh, Zain Marley and colleagues, with an educational edil from [employer]. Thrive Questionnaire Date Thrive assessed: 07/31/24 I am a: Patient What is your living situation today?: I have a steady place to live Within the past 12 months, did the food you bought not last and you didn't have the money to get more?: Never true Within the past 12 months, did you worry whether your food would run out before you got money to buy more?: Never true Do you have trouble paying for medicines?: No Do you have trouble getting transportation to medical appointments?: No Do you have trouble paying your heating and electricity bill?: No Do you have trouble taking care of your child, family member or friend?: No Do you have trouble with day-to-day activities such as bathing, preparing meals, shopping, managing finances, etc.?: No Are you currently unemployed and looking for a job?: No Are you interested in more education?: No Please select the resources that you would like help with: None Currently or been in a relationship where the following occur: No concerns reported THRIVE Score: 0 JD-7 AMB Questionnaire JD-7 Date JD - 7 assessed: 01/31/25 Feeling nervous, anxious, or on edge: 0 = Not at all Not being able to stop or control worryin = Not at all Worrying too much about different things: 0 = Not at all Trouble relaxin = Not at all Being so restless that it is hard to sit still: 0 = Not at all Becoming easily annoyed or irritable: 0 = Not at all Feeling afraid as if something awful might happen: 0 = Not at all Total JD-7 score (0-4 normal; 5-9 mild; 10-14 moderate; 15-21 severe): 0 Source: Developed by Drs. Oliver Dalton, Kiara Singh, Zain Marley and colleagues, with an educational edil from [employer]. JD-7 Assessment Billing JD-7 Assessment Tool: JD-7 Assessment 43136 Physical exam (Primary Care) Vital Signs: Last Vital Signs Pulse 104 H 01/31/25 11:30 Resp 16 01/31/25 11:30 BP 138/82 01/31/25 11:30 Pulse Ox 98 01/31/25 11:30 Oxygen Delivery Method Room Air 01/31/25 11:30 BMI result Body Mass Index 33.8 Tobacco/Smoking Status: Tobacco use Status Tobacco use date assessed 01/31/25 01/31/25 11:33 Patient Tobacco Use Status Never used Tobacco 01/31/25 11:33 PHQ-9: PHQ-9 Score PHQ-9: Total score 0 01/31/25 11:33 Depression Screening Interpretation: Negative Thrive Assessment: Date of Thrive Assessment Date Thrive assessed 07/31/24 01/31/25 11:33 Currently or been in a relationship where the following occur: No concerns reported Coding Level of Care Code Est Pt Level 3 (49878) Diagnoses HTN (hypertension) I10 Migraines G43.909 Additional Codes JD-7 Assessment Billing - JD-7 Assessment Tool: JD-7 Assessment 04626 ([id number]) PHQ-9 - 01974 - PHQ-9 Billing: Yes ([id number]) Assessment & Plan Assessment & Plan (1) HTN (hypertension): Code(s): I10 - Essential (primary) hypertension Category: Medical (2) Migraines: Code(s): G43.909 - Migraine, unspecified, not intractable, without status migrainosus Category: Medical Plan . Medications: New ubrogepant (Ubrelvy) 50 mg PO ONCE PRN 30 tabs 1RF acute migraines 30 days losartan 25 mg PO DAILY 90 tabs 0RF 90 days
[2025-01-31 11:30] VITALS: BP 138/82; PULSE 104; RESP 16; O2SAT 98; BMI 33.8
== END 2025-01-31 12:23 | disposition home or self-care (01) ==
LOC: HO.HMCC 11:23
PROVIDERS: PCP Nurse Practitioner Family; Visit Provider Nurse Practitioner Family
DX: I10 Essential (primary) hypertension (principal); G43.909 Migraine, unspecified, not intractable, without status migrainosus

== ENCOUNTER → 2025-01-31 11:22 | Outpatient (BNVA) | payer BC, SELFPAY | PROVIDERS: PCP Nurse Practitioner Family; Visit Provider Nurse Practitioner Family | DX: I10 Essential (primary) hypertension (principal); G43.909 Migraine, unspecified, not intractable, without status migrainosus | CPT/HCPCS: 96127 ==